=== PATIENT | female | born 1995 | race Hispanic/Latino ===

== ENCOUNTER 2021-09-30 05:56 | Emergency (ER) | payer MEDICAID ==
[~2021-09-30] VITALS: Ht 154.9 cm; Wt 65.8 kg
[~2021-09-30 05:56] MED LIST: PREN1TAB80 PO
[2021-09-30] MEDS ORDERED: ALBUTEROL 0.083% 2.5 MG/3 ML INH IH SCH (06:30)
[2021-09-30] MEDS ORDERED: AZITHROMYCIN 250 MG TABLET PO ONE (06:30)
[2021-09-30] MEDS ORDERED: GUAIFENESIN-CODEINE 5 ML SYRUP PO SCH (06:30)
[2021-09-30] MEDS ORDERED: AZITHROMYCIN 250 MG TABLET PO SCH (06:30)
[2021-09-30] MEDS ORDERED: GUAIFENESIN-CODEINE 5 ML SYRUP ONE (06:30)
[2021-09-30] MEDS ORDERED: D-ME118S47 PO (06:31)
[2021-09-30] MEDS ORDERED: AZIT1PAC7 PO (06:31)
[2021-09-30 07:07] VITALS: BP 123/63
== END 2021-09-30 07:11 | disposition home or self-care (01) ==
LOC: EDH 05:56
DX: J40 Bronchitis, not specified as acute or chronic (principal)
CPT/HCPCS: 94640